=== PATIENT | female | born 1985 | race Caucasian/White ===

== ENCOUNTER 2017-12-05 02:55 | Emergency (ER) | payer MEDICAID ==
[~2017-12-05] VITALS: Ht 149.9 cm; Wt 49.9 kg
[2017-12-05 03:06] VITALS: BP_SYST 100
[2017-12-05] MEDS ORDERED: IBUPROFEN 600 MG TABLET PO ONE (03:15)
[2017-12-05 03:41] VITALS: BP_SYST 105
== END 2017-12-05 03:41 | disposition home or self-care (01) ==
LOC: SED 02:55
DX: S50.11XA Contusion of right forearm, initial encounter (principal); K02.9 Dental caries, unspecified; W22.8XXA Striking against or struck by other objects, initial encounter; Y93.89 Activity, other specified; Y92.89 Other specified places as the place of occurrence of the external cause; Y99.8 Other external cause status
CPT/HCPCS: 99283